=== PATIENT | male | born 1985 | race Two or more races ===

== ENCOUNTER 2020-04-19 18:27 | Inpatient (IN) | payer OTHER ==
[~2020-04-19] VITALS: Ht 167.6 cm; Wt 81.6 kg
[~2020-04-19 18:27] MED LIST: AMOXICILLIN500 MG ORAL; IBUPROFEN600 MG ORAL; NKM
[2020-04-19 18:45] VITALS: BP 166/97
[2020-04-19 18:59] LABS: BASOPHILS % (AUTO) 1.5 % (0.0-2.0); HEMATOCRIT 50.2 % (42.0-52.0); HEMOGLOBIN 16.6 G/DL (14.2-18.0); MEAN CORPUSCULAR VOLUME 87 FL (80-99); MONOCYTES % (AUTO) 9.3 % (1.0-10.0); NEUTROPHILS % (AUTO) 61.2 % (45.0-75.0); PLATELET COUNT 261 K/UL (150-450); RED CELL DISTRIBUTION WIDTH 12.4 % (11.6-14.8); WHITE BLOOD COUNT 9.5 K/UL (4.8-10.8)
[2020-04-19 19:07] LABS: ANION GAP 13 mmol/L (5-15); BLOOD UREA NITROGEN 18 mg/dL (7-18); CALCIUM 8.9 MG/DL (8.5-10.1); CARBON DIOXIDE 23 MMOL/L (21-32); CHLORIDE 106 MMOL/L (98-107); CREATININE 1.1 MG/DL (0.55-1.30); SODIUM 142 MMOL/L (136-145)
[2020-04-19 19:12] LABS: ALANINE AMINOTRANSFERASE 69 U/L (12-78); ALBUMIN 4.8 G/DL (3.4-5.0); ALBUMIN/GLOBULIN RATIO 1.4 (1.0-2.7); ALKALINE PHOSPHATASE 91 U/L (46-116); ASPARTATE AMINO TRANSFERASE 48 U/L (15-37); BILIRUBIN,TOTAL 0.4 MG/DL (0.2-1.0)
--- NOTE | 2020-04-19 19:46 | Emergency Room Report ---
History of Present Illness General Chief Complaint: Chest Pain Source: Patient Present Illness HPI This patient states that around 2 AM this morning he woke up with left arm pain. He states he also had left chest pain and chest pressure. He states he was nauseated and became sweaty. He states that since that time the pain in his left arm has persisted. He denies recent illness. He denies cough or congestion. He denies fever or chills. He denies injury or trauma. He denies abdominal pain. He has no other complaints. He states that 2 of his uncles of heart attack at young ages. He states his father last year of pancreatic cancer. He states that he did have his cholesterol checked and it was very high. He is not on any cholesterol medications currently. He did change his diet. 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 Patient History Past Medical History: see triage record, GERD, other - HLP Social History: Reports: alcohol use - social; Denies: smoking, drug use Reviewed Nursing Documentation: PMH: Agreed; PSxH: Agreed Nursing Documentation-PMH Past Medical History: No History, Except For Hx Gastrointestinal Problems: Yes - acid reflux Review of Systems All Other Systems: negative except mentioned in HPI Physical Exam Vital Signs Date Time Temp Pulse Resp B/P (MAP) Pulse Ox O2 Delivery O2 Flow Rate FiO2 04/19/20 18:41 97.3 74 22 166/97 (120) 98 Room Air Sp02 EP Interpretation: reviewed, normal General Appearance: no apparent distress, alert, GCS 15, non-toxic Head: normocephalic, atraumatic Eyes: bilateral eye normal inspection, bilateral eye PERRL ENT: hearing grossly normal, normal pharynx, no angioedema, normal voice Neck: full range of motion, supple/symm/no masses Respiratory: chest non-tender, lungs clear, normal breath sounds, no respiratory distress, no retraction, no accessory muscle use, speaking full sentences Cardiovascular #1: regular rate, rhythm, no edema Gastrointestinal: normal bowel sounds, non tender, soft, non-distended, no guarding, no rebound Rectal: deferred Musculoskeletal: back normal, normal range of motion, gait/station normal, non- tender Neurologic: alert, motor strength/tone normal, oriented x3, sensory intact, responsive, speech normal Psychiatric: judgement/insight normal, memory normal, mood/affect normal, no suicidal/homicidal ideation Skin: no rash, normal color Medical Decision Making Diagnostic Impression: Primary Impression: Chest pain ER Course This patient is moderate risk for acute coronary syndrome. He states he has a history of uncontrolled hyperlipidemia. His symptoms are concerning with left arm pain, chest pressure and diaphoresis. He also has ongoing symptoms. I am most concerned because the patient does have regional EKG findings in leads II, III and aVF. These are nonspecific findings on the EKG. Also reassuring was a negative troponin. However, in the setting of the patient's symptoms, history of hyperlipidemia and family history, I felt that this patient should be admitted for further evaluation by cardiology and to rule out acute coronary syndrome. Also, the patient does not currently have a primary care physician as he relocated to [place] recently and therefore could not get a close follow-up within the next 72 hours. Because of all of these reasons, I felt this patient should be admitted. Laboratory Tests Test 04/19/20 18:12 White Blood Count 9.5 K/UL (4.8-10.8) Red Blood Count 5.80 M/UL (4.70-6.10) Hemoglobin 16.6 G/DL (14.2-18.0) Hematocrit 50.2 % (42.0-52.0) Mean Corpuscular Volume 87 FL (80-99) Mean Corpuscular Hemoglobin 28.7 PG (27.0-31.0) Mean Corpuscular Hemoglobin Concent 33.2 G/DL (32.0-36.0) Red Cell Distribution Width 12.4 % (11.6-14.8) Platelet Count 261 K/UL (150-450) Mean Platelet Volume 7.3 FL (6.5-10.1) Neutrophils (%) (Auto) 61.2 % (45.0-75.0) Lymphocytes (%) (Auto) 27.0 % (20.0-45.0) Monocytes (%) (Auto) 9.3 % (1.0-10.0) Eosinophils (%) (Auto) 1.0 % (0.0-3.0) Basophils (%) (Auto) 1.5 % (0.0-2.0) Sodium Level 142 MMOL/L (136-145) Potassium Level 4.0 MMOL/L (3.5-5.1) Chloride Level 106 MMOL/L (98-107) Carbon Dioxide Level 23 MMOL/L (21-32) Anion Gap 13 mmol/L (5-15) Blood Urea Nitrogen 18 mg/dL (7-18) Creatinine 1.1 MG/DL (0.55-1.30) Estimated Glomerular Filtration Rate > 60 mL/min (>60) Glucose Level 99 MG/DL (74-106) Calcium Level 8.9 MG/DL (8.5-10.1) Total Bilirubin 0.4 MG/DL (0.2-1.0) Aspartate Amino Transferase (AST) 48 U/L (15-37) H Alanine Aminotransferase (ALT) 69 U/L (12-78) Alkaline Phosphatase 91 U/L (46-116) Troponin I 0.000 ng/mL (0.000-0.056) Total Protein 8.2 G/DL (6.4-8.2) Albumin 4.8 G/DL (3.4-5.0) Globulin 3.4 g/dL Albumin/Globulin Ratio 1.4 (1.0-2.7) EKG Diagnostic Results Rate: normal Rhythm: NSR ST Segments: other - Flipped t-waves and ST segment flattening in II, III, aVF Rhythm Strip Diag. Results EP Interpretation: yes Rate: 60's Rhythm: NSR, no PVC's, no ectopy Chest X-Ray Diagnostic Results Chest X-Ray Diagnostic Results : Chest X-Ray Ordered: Yes # of Views/Limited/Complete: 1 View Indication: Chest Pain EP Interpretation: Yes Interpretation: no consolidation, no effusion, no pneumothorax, no acute cardiopulmonary disease Impression: No acute disease Electronically Signed by: Macie Sykes DO Last Vital Signs Date Time Temp Pulse Resp B/P (MAP) Pulse Ox O2 Delivery O2 Flow Rate FiO2 04/19/20 18:45 97.3 74 22 166/97 98 Room Air Disposition: ADMITTED INPATIENT Condition: Stable Referrals: [facility],REFERRING (PCP) Macie Sykes DO Apr 19, 2020 19:46
[2020-04-19 21:06] VITALS: BP 130/73
[2020-04-19] MEDS ORDERED: Nitroglycerin Subl 0.4mg tab SL PRN (21:30)
[2020-04-19] MEDS ORDERED: Enalaprilat 2.5mg/2ml Inj IV PRN (21:30)
[2020-04-19] MEDS ORDERED: Miralax 17gm pkt ORAL PRN (21:30)
[2020-04-19] MEDS ORDERED: Albuterol/Ipratropium 3ml neb HHN PRN (21:30)
[2020-04-19] MEDS ORDERED: dilTIAZem HCl 25mg/5ml Inj IV PRN (21:30)
[2020-04-19 22:00] VITALS: BP 141/86
[2020-04-20] VITALS: BP 122/67
[2020-04-20 04:00] VITALS: BP 107/63
[2020-04-20 05:54] LABS: BASOPHILS % (AUTO) 1.3 % (0.0-2.0); EOSINOPHILS % (AUTO) 1.9 % (0.0-3.0); HEMOGLOBIN 16.6 G/DL (14.2-18.0); LYMPHOCYTES % (AUTO) 31.1 % (20.0-45.0); MEAN CORPUSCULAR VOLUME 89 FL (80-99); MONOCYTES % (AUTO) 9.6 % (1.0-10.0); NEUTROPHILS % (AUTO) 56.1 % (45.0-75.0); PLATELET COUNT 241 K/UL (150-450); RED BLOOD COUNT 5.74 M/UL (4.70-6.10); RED CELL DISTRIBUTION WIDTH 12.1 % (11.6-14.8); WHITE BLOOD COUNT 8.8 K/UL (4.8-10.8)
[2020-04-20 06:07] LABS: INR 1.1 (0.9-1.1)
[2020-04-20 06:28] LABS: CHOLESTEROL 211 MG/DL (< 200); HDL CHOLESTEROL 34 MG/DL (40-60); TRIGLYCERIDES 208 MG/DL (30-150)
[2020-04-20 08:30] VITALS: BP 121/70
[2020-04-20] MEDS ORDERED: Heparin 5000 units/ml inj SUBQ SCH (09:00)
[2020-04-20] MEDS ORDERED: Aspirin Baby 81mg ORAL SCH (09:00)
--- NOTE | 2020-04-20 11:17 | Cardiac Electrophysiology PN ---
Subjective Subjective [id number] Objective Last 24 Hour Vital Signs Date Time Temp Pulse Resp B/P (MAP) Pulse Ox O2 Delivery O2 Flow Rate FiO2 04/20/20 08:30 96.6 55 18 121/70 (87) 97 04/20/20 08:09 Room Air 04/20/20 07:52 56 04/20/20 04:00 97.7 50 20 107/63 (78) 98 04/20/20 04:00 63 04/20/20 00:00 98.8 53 18 122/67 (85) 98 04/20/20 00:00 55 04/19/20 22:35 71 04/19/20 22:35 Room Air 04/19/20 22:00 98.4 64 20 141/86 (104) 98 04/19/20 21:45 97.3 70 17 130/73 98 Room Air 04/19/20 21:06 70 17 130/73 98 Room Air 04/19/20 18:45 97.3 74 22 166/97 98 Room Air 04/19/20 18:45 74 22 Room Air 04/19/20 18:41 97.3 74 22 166/97 (120) 98 Room Air Intake and Output 04/19/20 04/20/20 19:00 07:00 Intake Total 300 ml Output Total 0 ml Balance 0 ml 300 ml Intake Oral 300 ml Output Urine Total 0 ml # Voids 2 Laboratory Tests Test 04/19/20 18:12 04/20/20 05:36 White Blood Count 9.5 K/UL (4.8-10.8) 8.8 K/UL (4.8-10.8) Red Blood Count 5.80 M/UL (4.70-6.10) 5.74 M/UL (4.70-6.10) Hemoglobin 16.6 G/DL (14.2-18.0) 16.6 G/DL (14.2-18.0) Hematocrit 50.2 % (42.0-52.0) 51.0 % (42.0-52.0) Mean Corpuscular Volume 87 FL (80-99) 89 FL (80-99) Mean Corpuscular Hemoglobin 28.7 PG (27.0-31.0) 29.0 PG (27.0-31.0) Mean Corpuscular Hemoglobin Concent 33.2 G/DL (32.0-36.0) 32.6 G/DL (32.0-36.0) Red Cell Distribution Width 12.4 % (11.6-14.8) 12.1 % (11.6-14.8) Platelet Count 261 K/UL (150-450) 241 K/UL (150-450) Mean Platelet Volume 7.3 FL (6.5-10.1) 6.6 FL (6.5-10.1) Neutrophils (%) (Auto) 61.2 % (45.0-75.0) 56.1 % (45.0-75.0) Lymphocytes (%) (Auto) 27.0 % (20.0-45.0) 31.1 % (20.0-45.0) Monocytes (%) (Auto) 9.3 % (1.0-10.0) 9.6 % (1.0-10.0) Eosinophils (%) (Auto) 1.0 % (0.0-3.0) 1.9 % (0.0-3.0) Basophils (%) (Auto) 1.5 % (0.0-2.0) 1.3 % (0.0-2.0) Sodium Level 142 MMOL/L (136-145) Potassium Level 4.0 MMOL/L (3.5-5.1) Chloride Level 106 MMOL/L (98-107) Carbon Dioxide Level 23 MMOL/L (21-32) Anion Gap 13 mmol/L (5-15) Blood Urea Nitrogen 18 mg/dL (7-18) Creatinine 1.1 MG/DL (0.55-1.30) Estimat Glomerular Filtration Rate > 60 mL/min (>60) Glucose Level 99 MG/DL (74-106) Calcium Level 8.9 MG/DL (8.5-10.1) Total Bilirubin 0.4 MG/DL (0.2-1.0) Aspartate Amino Transf (AST/SGOT) 48 U/L (15-37) H Alanine Aminotransferase (ALT/SGPT) 69 U/L (12-78) Alkaline Phosphatase 91 U/L (46-116) Troponin I 0.000 ng/mL (0.000-0.056) 0.000 ng/mL (0.000-0.056) Total Protein 8.2 G/DL (6.4-8.2) Albumin 4.8 G/DL (3.4-5.0) Globulin 3.4 g/dL Albumin/Globulin Ratio 1.4 (1.0-2.7) Prothrombin Time 11.8 SEC (9.30-11.50) H Prothromb Time International Ratio 1.1 (0.9-1.1) Activated Partial Thromboplast Time 28 SEC (23-33) C-Reactive Protein, Quantitative < 0.4 mg/dL (0.00-0.90) Triglycerides Level 208 MG/DL (30-150) H Cholesterol Level 211 MG/DL (< 200) H LDL Cholesterol 129 mg/dL (<100) H HDL Cholesterol 34 MG/DL (40-60) L Cholesterol/HDL Ratio 6.2 (3.3-4.4) H Thyroid Stimulating Hormone (TSH) 1.921 uiU/mL (0.358-3.740) Kobi Rodriguez MD Apr 20, 2020 11:17
[2020-04-20] MEDS ORDERED: Lexiscan 0.4mg/5ml syringe IV PRN (11:30)
[2020-04-20 11:46] VITALS: BP 122/82
--- NOTE | 2020-04-20 13:31 | Consultation ---
History of Present Illness General Date patient seen: Apr 20, 2020 Chief Complaint: Chest Pain Present Illness HPI 34 year old male with hx of high cholesterol presented to ER with CC of left arm pain since 2 AM this morning which woke him up. He stated he also had left chest pain and chest pressure. He states he was nauseated and became sweaty. He states that since that time the pain in his left arm has persisted. He denies cough or congestion. He denies fever or chills. He states that 2 of his uncles of heart attack at young ages. Allergies: Coded Allergies: No Known Allergies (Unverified , 04/16/16) Medication History Scheduled Amoxicillin* (Amoxil*), 500 MG ORAL THREE TIMES A DAY No Known Medications* (NKM - No Known Medications*), 0 ., (Reported) Scheduled PRN Ibuprofen (Motrin), 600 MG ORAL Q8H PRN for For Pain Patient History Healthcare decision maker Resuscitation status Advanced Directive on File Past Medical/Surgical History Past Medical/Surgical History: (1) Hypercholesteremia Review of Systems All Other Systems: negative except mentioned in HPI Physical Exam General Appearance: WD/WN Lines, tubes and drains: peripheral HEENT: normocephalic, atraumatic Neck: non-tender, normal alignment Respiratory/Chest: chest wall non-tender Cardiovascular/Chest: normal peripheral pulses Abdomen: normal bowel sounds Extremities: normal range of motion Skin Exam: normal pigmentation 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 Last 24 Hour Vital Signs Date Time Temp Pulse Resp B/P (MAP) Pulse Ox O2 Delivery O2 Flow Rate FiO2 04/20/20 11:52 55 04/20/20 11:46 97.5 48 18 122/82 (95) 98 04/20/20 08:30 96.6 55 18 121/70 (87) 97 04/20/20 08:09 Room Air 04/20/20 07:52 56 04/20/20 04:00 97.7 50 20 107/63 (78) 98 04/20/20 04:00 63 04/20/20 00:00 98.8 53 18 122/67 (85) 98 04/20/20 00:00 55 04/19/20 22:35 71 04/19/20 22:35 Room Air 04/19/20 22:00 98.4 64 20 141/86 (104) 98 04/19/20 21:45 97.3 70 17 130/73 98 Room Air 04/19/20 21:06 70 17 130/73 98 Room Air 04/19/20 18:45 97.3 74 22 166/97 98 Room Air 04/19/20 18:45 74 22 Room Air 04/19/20 18:41 97.3 74 22 166/97 (120) 98 Room Air Intake and Output 04/19/20 04/20/20 19:00 07:00 Intake Total 300 ml Output Total 0 ml Balance 0 ml 300 ml Intake Oral 300 ml Output Urine Total 0 ml # Voids 2 Laboratory Tests Test 04/19/20 18:12 04/20/20 05:36 04/20/20 11:30 White Blood Count 9.5 K/UL (4.8-10.8) 8.8 K/UL (4.8-10.8) Red Blood Count 5.80 M/UL (4.70-6.10) 5.74 M/UL (4.70-6.10) Hemoglobin 16.6 G/DL (14.2-18.0) 16.6 G/DL (14.2-18.0) Hematocrit 50.2 % (42.0-52.0) 51.0 % (42.0-52.0) Mean Corpuscular Volume 87 FL (80-99) 89 FL (80-99) Mean Corpuscular Hemoglobin 28.7 PG (27.0-31.0) 29.0 PG (27.0-31.0) Mean Corpuscular Hemoglobin Concent 33.2 G/DL (32.0-36.0) 32.6 G/DL (32.0-36.0) Red Cell Distribution Width 12.4 % (11.6-14.8) 12.1 % (11.6-14.8) Platelet Count 261 K/UL (150-450) 241 K/UL (150-450) Mean Platelet Volume 7.3 FL (6.5-10.1) 6.6 FL (6.5-10.1) Neutrophils (%) (Auto) 61.2 % (45.0-75.0) 56.1 % (45.0-75.0) Lymphocytes (%) (Auto) 27.0 % (20.0-45.0) 31.1 % (20.0-45.0) Monocytes (%) (Auto) 9.3 % (1.0-10.0) 9.6 % (1.0-10.0) Eosinophils (%) (Auto) 1.0 % (0.0-3.0) 1.9 % (0.0-3.0) Basophils (%) (Auto) 1.5 % (0.0-2.0) 1.3 % (0.0-2.0) Sodium Level 142 MMOL/L (136-145) Potassium Level 4.0 MMOL/L (3.5-5.1) Chloride Level 106 MMOL/L (98-107) Carbon Dioxide Level 23 MMOL/L (21-32) Anion Gap 13 mmol/L (5-15) Blood Urea Nitrogen 18 mg/dL (7-18) Creatinine 1.1 MG/DL (0.55-1.30) Estimat Glomerular Filtration Rate > 60 mL/min (>60) Glucose Level 99 MG/DL (74-106) Calcium Level 8.9 MG/DL (8.5-10.1) Total Bilirubin 0.4 MG/DL (0.2-1.0) Aspartate Amino Transf (AST/SGOT) 48 U/L (15-37) H Alanine Aminotransferase (ALT/SGPT) 69 U/L (12-78) Alkaline Phosphatase 91 U/L (46-116) Troponin I 0.000 ng/mL (0.000-0.056) 0.000 ng/mL (0.000-0.056) Total Protein 8.2 G/DL (6.4-8.2) Albumin 4.8 G/DL (3.4-5.0) Globulin 3.4 g/dL Albumin/Globulin Ratio 1.4 (1.0-2.7) Prothrombin Time 11.8 SEC (9.30-11.50) H Prothromb Time International Ratio 1.1 (0.9-1.1) Activated Partial Thromboplast Time 28 SEC (23-33) C-Reactive Protein, Quantitative < 0.4 mg/dL (0.00-0.90) Triglycerides Level 208 MG/DL (30-150) H Cholesterol Level 211 MG/DL (< 200) H LDL Cholesterol 129 mg/dL (<100) H HDL Cholesterol 34 MG/DL (40-60) L Cholesterol/HDL Ratio 6.2 (3.3-4.4) H Thyroid Stimulating Hormone (TSH) 1.921 uiU/mL (0.358-3.740) D-Dimer < 0.32 mg/L FEU Height (Feet): 5 Height (Inches): 6.00 Weight (Pounds): 180 Medications Current Medications Medications (Trade) Dose Ordered Sig/Anayeli Route PRN Reason Start Time Stop Time Status Last Admin Dose Admin Acetaminophen (Tylenol) 650 mg Q4H PRN ORAL FEVER 04/19/20 21:30 05/19/20 21:29 Albuterol/ Ipratropium (Albuterol/ Ipratropium) 3 ml Q4H PRN HHN Shortness of Breath 04/19/20 21:30 04/24/20 21:29 Aspirin (ASA) 162 mg DAILY ORAL 04/20/20 09:00 06/04/20 08:59 04/20/20 09:29 Diltiazem HCl (Cardizem) 10 mg Q1H PRN IV heart rate more than 120, 04/19/20 21:30 05/19/20 21:29 Enalaprilat (Vasotec) 2.5 mg Q6H PRN IV sbp more than 160 04/19/20 21:30 05/19/20 21:29 Heparin Sodium (Porcine) (Heparin 5000 units/ml) 5,000 units EVERY 12 HOURS SUBQ 04/20/20 09:00 06/04/20 08:59 04/20/20 09:30 Nitroglycerin (Ntg) 0.4 mg Q5M PRN SL Prn Chest Pain 04/19/20 21:30 05/19/20 21:29 Ondansetron HCl (Zofran) 4 mg Q6H PRN IVP Nausea & Vomiting 04/19/20 21:30 05/19/20 21:29 Polyethylene Glycol (Miralax) 17 gm DAILYPRN PRN ORAL Constipation 04/19/20 21:30 05/19/20 21:29 Regadenoson (Lexiscan) 0.4 mg ONCE PRN IV Radiology Procedure 04/20/20 11:30 04/22/20 11:29 Temazepam (Restoril) 15 mg HSPRN PRN ORAL Insomnia 04/19/20 21:30 04/26/20 21:29 Assessment/Plan Problem List: (1) Chest pain ICD Codes: R07.9 - Chest pain, unspecified SNOMED: 37244933 (2) Hypercholesteremia ICD Codes: E78.00 - Pure hypercholesterolemia, unspecified SNOMED: 12079380 Assessment/Plan: serial ekg, troponin, echocardiogram all above are negative. pt could benefit from a stress study. dc with close follow up with the primary. Blane Kellogg MD Apr 20, 2020 13:31
[2020-04-20] MEDS ORDERED: ACETAMINOPHEN-1 EAC1 ORAL (13:33)
[2020-04-20] MEDS ORDERED: ATORVASTATIN CA10 MG ORAL (13:35)
--- NOTE | 2020-04-20 13:52 | Diagnostic Imaging Report ---
Indication: Chest pain Technique: One view of the chest Comparison: 04/19/2020 Findings: Lungs and pleural spaces are clear. Heart size is normal. No significant change Impression: No acute process
--- NOTE | 2020-04-20 14:16 | Diagnostic Imaging Report ---
Indication: Chest pain Technique: One view of the chest Comparison: 05/09/2016 Findings: Lungs and pleural spaces are clear. Heart size is normal. Impression: No acute process
--- NOTE | 2020-04-20 15:15 | Consultation ---
DATE OF CONSULTATION: 04/20/2020 CARDIOLOGY CONSULTATION CONSULTING PHYSICIAN: Kobi Rodriguez MD. REFERRING PHYSICIAN: Karthik Rucker MD. REASON FOR CONSULTATION: Bradycardia and chest pain. HISTORY OF PRESENT ILLNESS: Patient is a 34-year-old gentleman with no past medical history, presented to the emergency room with episode of chest pain that woke him up around 2 o'clock in the morning with left arm radiation. Patient was sweaty and nauseated. Since admission, the patient has had also bradycardia with heart rate in the high 40s and low 50s. Patient denies any syncope or presyncopal episodes. Patient stated that two of his uncles from heart attack at young ages and father of pancreatic cancer. Patient was ruled out for myocardial infarction by serial cardiac enzymes. A Cardiology consultation was obtained for further evaluation. It is of note patient's blood pressure in the ER was 166/97. REVIEW OF SYSTEMS: Negative other than what was mentioned in the history of present illness. PAST MEDICAL HISTORY: Negative. FAMILY HISTORY: Noncontributory. SOCIAL HISTORY: He lives at home. Does not smoke or drink alcohol or use any drugs. MEDICATION AT HOME: None. PHYSICAL EXAMINATION: VITAL SIGNS: Show blood pressure of 121/70, pulse is 55, respirations 18, he is afebrile. HEAD AND NECK: Showed no JVD or carotid bruit. LUNGS: Clear. CARDIOVASCULAR: Shows bradycardic. S1 and S2 with no gallop or murmur. ABDOMEN: Soft. EXTREMITIES: No pitting edema. LABORATORY DATA: Labs show white count of 8.8, hemoglobin of 16, hematocrit 51, platelet count is 241. Sodium 142, potassium 4.0, BUN of 16, creatinine 1.1. Troponin negative x2. ASSESSMENT AND PLAN: 1. Atypical chest pain. EKG is nonischemic. Echocardiogram showed normal left ventricular systolic fraction. Patient is only 34 years old with no history of drug use. Patient already ruled out for myocardial infarction by serial cardiac enzymes. We will proceed with treadmill stress test for further evaluation and management. We will also check a D-dimer even though patient has low risk for pulmonary embolism. 2. Bradycardia. This is likely due to high vagal tone. Patient is only 34 years old, off any sinus or AV perry blocking agent. Denies any syncope. TSH is within normal range. We will watch the patient on telemetry. Thank you very much for allowing me to participate in the care of this patient. Please do not hesitate to contact for any questions regarding my evaluation. Kobi Rodriguez M.D. DR: FLIP JOB#: [id number] CC:
--- NOTE | 2020-04-20 17:02 | History & Physical ---
History and Physical History & Physicial Karthik Rucker MD Apr 20, 2020 17:02
--- NOTE | 2020-04-20 20:30 | History and Physical Report ---
DATE OF ADMISSION: 04/19/2020 CHIEF COMPLAINT: Chest pain. HISTORY OF PRESENT ILLNESS: This is a 34-year-old gentleman, denies any past medical or past surgical history, who presented to the hospital complaining about chest pain which radiated to the left upper extremity. The patient stated that it started around 2 o'clock in the morning associated with nausea and diaphoresis. The patient was noted to have bradycardia. Denies any syncope or presyncope episodes. Shortly after initial evaluation in the emergency, the patient was admitted to the hospital with chest pain, possible acute coronary syndrome. PAST MEDICAL HISTORY/PAST SURGICAL HISTORY: The patient has a history of elevated cholesterol and dyslipidemia. SOCIAL HISTORY: The patient lives at home. The patient denies any smoking, alcohol, or drugs. He socially drinks. Denies any substance abuse. FAMILY HISTORY: Father has history of coronary artery disease, status post CABG and from pancreatic cancer. REVIEW OF SYSTEMS: Mostly as above. Denies any dysuria, frequency, or hematuria. Denies any hemoptysis or hematochezia. Denies any suicidal or homicidal ideation. Denies any loss of consciousness. PHYSICAL EXAMINATION: VITAL SIGNS: Blood pressure 121/70, pulse of 55, respirations 18, the patient is afebrile. GENERAL: The patient is awake, responsive, and in no acute distress. HEAD AND NECK: Pupils are equal and reactive to light. Extraocular movements intact. Neck was supple. No JVD. LUNGS: Good air entry. No wheezing or rales. HEART: S1, S2. Regular rhythm. No gallops. ABDOMEN: Soft, nondistended, nontender. Positive bowel sounds. EXTREMITIES: No cyanosis, clubbing, or edema NEUROLOGIC: Cranial nerves II through XII grossly intact. Motor is 5/5 in all extremities. Gait is intact. RECTAL: Refused and deferred. GENITOURINARY: Refused and deferred. PSYCHIATRIC: Mood and affect is intact. LABORATORY AND DIAGNOSTIC DATA: Laboratory on admission, WBC of 9.5, hemoglobin 16, hematocrit of 50, platelet is 261,000. Sodium 142, potassium 4.0, chloride 106, bicarb 23, BUN 18, creatinine 1.1. First and second troponin 0.00. CRP is less than 0.04. Triglycerides 208, cholesterol is 211, LDL is 129. TSH is 1.921. PT of 11, INR 1.1, PTT of 28. D-dimer is less than 0.32. The patient's chest x-ray unremarkable. No acute cardiopulmonary disease. The patient had an echocardiogram and noted to be normal left ventricular systolic chamber, systolic function, and wall motion. Normal ejection fraction of 60%. No evidence of the pericardial effusion. Mild mitral annulus and aortic root calcification. ASSESSMENT: 1. Atypical chest pain. 2. Dyslipidemia. PLAN: Admit the patient to monitored unit. Discussed with the patient with regard to the finding of echocardiogram and laboratory. Consider to discharge the patient home today to be followed with his primary doctor, Dr. Flaco Ndiaye, to have a stress test done as an outpatient if indicated by primary physician. At this time, the patient is chest pain-free and I advised the patient to follow up with primary doctor within one week. Karthik Rucker M.D. DR: Kayla JOB#: [id number] CC:
--- NOTE | 2020-04-22 14:16 | Discharge Summary ---
Discharge Summary Discharge Summary _ DATE OF ADMISSION: 04/19/2020 DATE OF DISCHARGE: 04/20/2020 ADMITTING MD: Dr. Karthik Rucker DISCHARGED BY: Dr. Blane Kellogg CONSULTANTS: Dr. Blane Rodriguez BRIEF HOSPITAL COURSE: The patient is a 34-year-old gentleman, who presented to the hospital due to chest pain that radiated to the left upper extremity. Pain started around 2:00 in the morning with associated mild nausea and diaphoresis. He denied any syncope or presyncopal episode. He has a history of elevated cholesterol but not on any medication. Patient stated he had 2 uncles who of heart attack at a young age. Upon evaluation at ED, blood pressure was 166/97, heart rate 74. Blood work did not show any leukocytosis. Hemoglobin and hematocrit were stable. Electrolytes were normal. Troponin was negative. EKG was in sinus rhythm with flipped T waves and ST segment flattening in leads II, III and aVF. Chest x- ray did not show any acute process. He was given aspirin. He was admitted to monitored floor for further evaluation of chest pain, possible acute coronary syndrome. He was hooked on ekg monitor tech. Cardiac enzymes were monitored. He was evaluated by leather etcher and loss control consultant. He was continued on antiplatelet therapy. Blood pressure was monitored. He did not require any prn antihypertensives. Patient was noted to have bradycardia with heart rate in the high 40s and low 50s. He underwent echocardiogram that showed normal left ventricular systolic function, with ejection fraction of 60%. No evidence of pericardial effusion. Cardiac enzymes were negative. Patient bradycardia was likely due to high vagal tone. He is not on any sinus or AV perry blocking agent. He denied any history of drug use. TSH was within normal range. D-dimer was normal. Repeat chest x-ray unremarkable. Patient was chest pain-free. Patient was cleared for discharge to follow-up with his primary doctor, to have a stress test done as an outpatient. FINAL DIAGNOSES: Atypical chest pain Dyslipidemia DISPOSITION: Patient was discharged home. DISCHARGE MEDICATIONS: Refer to Discharge Medication List. DISCHARGE INSTRUCTIONS: Follow-up with PCP in a week. I have been assigned to complete a discharge summary on this account, I was not involved with the patient's management.--CONSTANTINO Dia Jacqueline Robles NP Apr 22, 2020 14:16
--- NOTE | 2020-04-24 10:15 | Coder Physician Query ---
Clarification is required for compliance, coding accuracy, and to reflect severity of illness for this patient Dear Dr. 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 EKG was in sinus rhythm with flipped T waves and ST segment flattening in leads II, III and aVF. Chest x-ray did not show any acute process. He was given aspirin. He was admitted to monitored floor for further evaluation of chest pain, possible acute coronary syndrome. 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 Cardiac enzymes were monitored. He was evaluated by materials specialist and managing editor. He was continued on antiplatelet therapy. Blood pressure was monitored. He did not require any prn antihypertensives. Patient was noted to have bradycardia with heart rate in the high 40s and low 50s. He underwent echocardiogram that showed normal left ventricular systolic function, with ejection fraction of 60%. No evidence of pericardial effusion. Cardiac enzymes were negative. Patient bradycardia was likely due to high vagal tone. He is not on any sinus or AV perry blocking agent. He denied any history of drug use. TSH was within normal range. D-dimer was normal. Repeat chest x-ray unremarkable. FINAL DIAGNOSES: Atypical chest pain Dyslipidemia Please document the suspected etiology of Chest Pain: [] Unable to determine [x] Musculoskeletal pain [] pleurisy [] Acute Coronary Syndrome [] Pericarditis [] Anxiety [] Pneumonia [] Costochondritis [] Pneumothorax [] GERD/Esophagitis [] Pulmonary embolism [] Other: Physician signature Date Please also document in your Progress Notes and/or Discharge Summary and indicate if the condition was present on admission. ADELAIDA
== END 2020-04-20 14:29 | disposition home or self-care (01) | DRG 203 ==
LOC: EMR 19:13 → 2E 20:01 → EDBEDREQ 21:26
DX: R07.89 Other chest pain (principal); E78.5 Hyperlipidemia, unspecified; R00.1 Bradycardia, unspecified
CPT/HCPCS: 36415; 71045; 80053; 80061; 84443; 84484; 85025; 85379; 85610; 85730; 86140; 93005; 93306; 99285